=== PATIENT | male | born 1955 | race Caucasian/White ===

== ENCOUNTER 2020-11-17 02:35 | Emergency (ER) | payer MEDICARE ==
[2020-11-17 02:47] VITALS: TEMP 98.4
--- NOTE | 2020-11-17 02:53 | ED ---
Male Urogenital HPI - General Chief complaint: Urogenital Stated complaint: ABD pain/post surgery Time Seen by Provider: 11/17/20 02:45 Source: patient, RN notes reviewed, old records reviewed Mode of arrival: ambulatory Limitations: no limitations - History of Present Illness Initial comments: This is a 65-year-old male to the ER for evaluation patient Dese for evaluation regards to severe severe abdominal pain. Recent prostate procedure with Dr. Rebolledo, patient continues to present for severe abdominal pain and inability urinary MD Complaint: other (Abdominal pain and inability ER today) -: hour(s) Radiation: none Severity: severe Quality: burning, dull Consistency: constant Improves with: none Worsens with: none recent surgery Reports: denies other symptoms - Related Data Allergies Allergy/AdvReac Type Severity Reaction Status Date / Time No Known Allergies Allergy Verified 11/17/20 02:44 Review of Systems ROS Statement: Those systems with pertinent positive or pertinent negative responses have been documented in the HPI. ROS Other: All systems not noted in ROS Statement are negative. Past Medical History Past Medical History: Cancer, GERD/Reflux, Prostate Disorder Additional Past Medical History / Comment(s): back pain History of Any Multi-Drug Resistant Organisms: None Reported Past Surgical History: Back Surgery, Prostate Surgery Additional Past Surgical History / Comment(s): stomach ulcer surgery Past Psychological History: No Psychological Hx Reported Smoking Status: Current every day smoker Past Alcohol Use History: None Reported Past Drug Use History: None Reported General Exam Limitations: no limitations General appearance: alert, in no apparent distress Head exam: Present: atraumatic, normocephalic, normal inspection Eye exam: Present: normal appearance, PERRL, EOMI. Absent: scleral icterus, conjunctival injection, periorbital swelling ENT exam: Present: normal exam, mucous membranes moist Neck exam: Present: normal inspection. Absent: tenderness, meningismus, lymphadenopathy Respiratory exam: Present: normal lung sounds bilaterally. Absent: respiratory distress, wheezes, rales, rhonchi, stridor Cardiovascular Exam: Present: regular rate, normal rhythm, normal heart sounds. Absent: systolic murmur, diastolic murmur, rubs, gallop, clicks GI/Abdominal exam: Present: soft, normal bowel sounds. Absent: distended, tenderness, guarding, rebound, rigid Extremities exam: Present: normal inspection, full ROM, normal capillary refill. Absent: tenderness, pedal edema, joint swelling, calf tenderness Back exam: Present: normal inspection Neurological exam: Present: alert, oriented X3, CN II-XII intact Psychiatric exam: Present: normal affect, normal mood Skin exam: Present: warm, dry, intact, normal color. Absent: rash Course Vital Signs 11/17/20 11/17/20 02:44 03:00 Temperature 98.4 F Pulse Rate 132 H 100 Respiratory 18 19 Rate Blood Pressure 178/91 160/79 O2 Sat by Pulse 96 98 Oximetry - Reevaluation(s) Reevaluation #1: Medical record is reviewed Patient symptoms are improved and resolved here in the ER Devi is placed without difficulty Patient informed of results, questions answered Patient feels good for discharge home Medical Decision Making - Medical Decision Making 65 male DF for evaluation of significant abdominal pain recent prostate procedure. Patient had for removed, urinary retention as returned for is replaced today with adequate output patient's symptoms resolved. He can be d ischarged home Disposition Clinical Impression: Urinary retention Disposition: HOME SELF-CARE Condition: Good Instructions (If sedation given, give patient instructions): Urinary Retention in Men (ED) Is patient prescribed a controlled substance at d/c from ED?: No Referrals: None,Stated [REFERRING] - 1-2 days
--- NOTE | 2020-11-17 03:58 | XR ---
EXAM: XR Abdomen, 2 Views and XR Chest, 1 View CLINICAL HISTORY: ITS.REASON XR Reason: pain TECHNIQUE: Frontal view of the chest, frontal view of the abdomen/pelvis and upright or decubitus view of the abdomen. COMPARISON: No relevant prior studies available. FINDINGS: Lungs: Unremarkable. No consolidation. Pleural space: Unremarkable. No pneumothorax. Heart: Unremarkable. No cardiomegaly. Mediastinum: Unremarkable. Intraperitoneal space: No free air. Gastrointestinal tract: Unremarkable. No dilation. Mild fecal burden throughout the colon. Bones/joints: Unremarkable. IMPRESSION: 1. No acute pulmonary process. 2. Nonobstructive bowel gas pattern. No free air under the hemidiaphragms. Mild fecal burden throughout the colon.
[2020-11-17 04:14] VITALS: BP 160/79; PULSE 100; RESP 19
== END 2020-11-17 04:13 | disposition home or self-care (01) ==
LOC: EC 02:35
DX: R33.9 Retention of urine, unspecified (principal); R10.9 Unspecified abdominal pain; F17.200 Nicotine dependence, unspecified, uncomplicated; Z85.028 Personal history of other malignant neoplasm of stomach
CPT/HCPCS: 51702; 74022; 99284